=== PATIENT | female | born 1985 | race Two or more races ===

== ENCOUNTER 2017-02-19 20:11 | Emergency (ER) | payer SELFPAY ==
[~2017-02-19 20:11] MED LIST: ALBUTEROL17 GM; AMOXICILLIN875 MG PO; FLAGYL500 MG PO; MACROBID 100 M100 MG PO; MYCOSTATIN APL; PHENERGAN W/CO120 ML PO; [UNRECOGNIZED DRUG - OTHER]
[2017-02-19] MEDS ORDERED: HUMALOG100 UNIT/1 (21:17)
[2017-02-19] MEDS ORDERED: LEVEMIR100 UNITS/ SC (21:17)
[2017-02-19] MEDS ORDERED: LABETALOL (21:18)
[2017-02-19] MEDS ORDERED: ERYTHROMYCIN1 GM OP (22:32)
== END 2017-02-20 00:43 ==
LOC: EDMED 20:11
DX: H10.022 Other mucopurulent conjunctivitis, left eye (principal); I10 Essential (primary) hypertension; E11.9 Type 2 diabetes mellitus without complications; J45.909 Unspecified asthma, uncomplicated; Z88.8 Allergy status to other drugs, medicaments and biological substances; Z79.4 Long term (current) use of insulin; Z79.899 Other long term (current) drug therapy; F17.210 Nicotine dependence, cigarettes, uncomplicated